=== PATIENT | male | born 1995 | race Caucasian/White ===

== ENCOUNTER 2021-11-21 12:22 | Emergency (ER) | payer OTHER ==
[2021-11-21] MEDS ORDERED: ERYTHROMYCIN O3.5 GM OU (13:07)
== END 2021-11-21 13:15 | disposition home or self-care (01) ==
LOC: ER1 12:22
DX: T15.02XA Foreign body in cornea, left eye, initial encounter (principal); X58.XXXA Exposure to other specified factors, initial encounter
CPT/HCPCS: 65220; 99283